=== PATIENT | male | born 1950 | race Caucasian/White ===

== ENCOUNTER 2016-10-30 21:06 | Emergency (ER) | payer OTHER ==
[~2016-10-30] VITALS: Ht 165.1 cm; Wt 107.5 kg
[2016-10-30 22:03] VITALS: Ht 165.1 cm; Wt 107.5 kg
[2016-10-30] MEDS ORDERED: KETOROLAC 60 MG INJ IM STA (22:43)
[2016-10-30] MEDS ORDERED: CYCL-319 PO (22:47)
[2016-10-30] MEDS ORDERED: IBUP800T25 PO (22:47)
[2016-10-30] MEDS ORDERED: HYDR-906 PO (22:47)
--- NOTE | 2016-10-30 22:51 | ERD ---
ER Documentation Chief Complaint Date/Time DATE: 10/30/16 TIME: 22:49 Chief Complaint LEFT ARM "NERVE SHOOTING PINCHING PAIN" STARTS AT WRIST UP TO ELBOW HPI 66-year-old male here is presenting complaining of left wrist pain that radiates up his arm for the past week but got worse in the past 3 days. He has been taking anti-inflammatories at home but is not really helping anymore. He denies any trauma but does state in the past he broke that wrist and since then sometimes he gets flares up of pain. He denies any chest pain or shortness of breath. Denies any palpitations. Denies any recent trauma. Denies any numbness or tingling. ROS All systems reviewed and are negative except as per history of present illness. Medications Home Meds Active Scripts Hydrocodone/Acetaminophen ([place] 5-325 Tablet) 1 Each Tablet, 1 TAB PO Q6H Y for PAIN, #20 TAB Prov:YOMI GARCIA PA-C 10/30/16 Ibuprofen* (Motrin*) 800 Mg Tab, 800 MG PO Q6, #30 TAB Prov:YOMI GARCIA PA-C 10/30/16 Cyclobenzaprine Hcl* (Cyclobenzaprine Hcl*) 10 Mg Tablet, 10 MG PO TID, #20 TAB Prov:YOMI GARCIA PA-C 10/30/16 FmHx Family History: No diabetes Physical Exam Vitals Vital Signs Date Time Temp Pulse Resp B/P Pulse Ox O2 Delivery O2 Flow Rate FiO2 10/30/16 22:03 97.5 83 17 141/119 96 Physical Exam General: well developed, well nourished, alert, nontoxic, no distress Head: normocephalic, atraumatic Neck: Supple, nontender, no lymphadenopathy, no midline tenderness Respiratory: Clear to auscaultation bilaterally, speaks in full sentences, no use of accesory muscles or labored breathing, no rales, ronchi, or wheezing Cardiovascular: RRR, No murmurs Back: no midline tenderness, no step offs or bony abnormalities, sensation to light touch in tact Extremities : Left wrist: Radial pulse 2+, full range of motion, able to make a fist and oppose thumb to all digits, capillary refill less than 2 seconds, no bony abnormalities, sensation to light touch intact throughout left upper extremity Results 24 hrs Current Medications Medications (Trade) Dose Ordered Sig/Shyann Route PRN Reason Start Time Stop Time Status Last Admin Dose Admin Ketorolac Tromethamine (Toradol) 60 mg ONCE STAT IM 10/30/16 22:43 10/30/16 22:44 DC Procedures/MDM Patient has left wrist pain. He is neurovascularly intact. No recent trauma but there is a history of old trauma. He has no chest pain or shortness of breath. His blood pressure is elevated but I reviewed with Dr. Baumann and he is not symptomatic and therefore we believe he can be managed outpatient. He was given Toradol here before being discharged with ibuprofen, Flexeril, and [place]. Recommended this patient follow up with her primary care doctor within 48 hours or return to the emergency room for any worsening of symptoms. However this time I do believe there is suitable for outpatient management. I answered all their questions and they agreed with the plan and were discharged home. Departure Diagnosis: Primary Impression: Myalgia Additional Impression: Hypertensive urgency Condition: Stable Patient Instructions: Myalgias Additional Instructions: Call your primary care doctor TOMORROW for an appointment during the next 1-2 days.See the doctor sooner or return here if your condition worsens before your appointment time. YOMI GARCIA PA-C Oct 30, 2016 22:51
== END 2016-10-30 23:21 | disposition home or self-care (01) ==
LOC: FTE 21:06
DX: M79.1 Myalgia (principal); I16.0 Hypertensive urgency
CPT/HCPCS: 96372; J1885; Z7502